=== PATIENT | male | born 1980 | race Caucasian/White ===

== ENCOUNTER 2017-08-11 18:48 | Emergency (ER) | payer BC ==
[2017-08-11 18:56] VITALS: BMI 29.8
[2017-08-11 18:59] VITALS: BP 131/86; PULSE 68; TEMP 98.4
--- NOTE | 2017-08-11 19:24 | PDOC ---
History of Present Illness - General History Source: Patient, Spouse Exam Limitations: Language Barrier - History of Present Illness Initial Comments: 08/11/17 19:46 The patient is a 37 year old male, with no significant past medical history, who presents to the emergency department s/p witnessed syncopal episode at approximately 18:00. As per partner, patient had one of his teeth removed at approximately 12:00 pm today. Patient reports he was feeling fine. However, patient reports at around 18:00, patient got up from his chair, took a couple of steps, syncopized, and hit his head on the door. Patient reports he does not recall getting up from the chair. As per , her mother reported the patient was down for several seconds, but was able to get up and ambulate on his own after the incident. Patient reports associated abrasion to the forehead with mild pain, upper lip laceration and pain, toothache, and bilateral knee pain. Patient reports taking Ibuprofen for the pain prior to presentation, with mild relief. He denies any headache, changes in vision, dizziness, lightheadedness, unsteady gait, weakness, neck or back pain. He denies any nausea or vomiting. He denies any fever or chills. He denies any chest pain, shortness of breath, diaphoresis, or palpitations. Patient reports he has had multiple syncopal episodes in the past, usually triggered by stressors. Patient's Tetanus shot is up to date. Allergies: NKDA Past Surgical History: Tooth extraction Social History: Social ETOH use. Non smoker. No recreational drug use. <Elke Machuca - Last Filed: 08/11/17 20:28> <Lucina Hyde - Last Filed: 08/14/17 01:31> - General Chief Complaint: Syncope/Near Syncope Stated Complaint: PASSED OUT Time Seen by Provider: 08/11/17 19:19 Past History <Elke Machuca - Last Filed: 08/11/17 20:28> - Past Medical History COPD: No - Suicide/Smoking/Psychosocial Hx Smoking History: Never smoked Hx Alcohol Use: Yes Drug/Substance Use Hx: No Substance Use Type: Alcohol <Lucina Hyde - Last Filed: 08/14/17 01:31> - Past Medical History Allergies/Adverse Reactions: Allergies Allergy/AdvReac Type Severity Reaction Status Date / Time No Known Allergies Allergy Verified 08/11/17 18:49 Home Medications: Ambulatory Orders Amoxicillin - [Amoxicillin 500mg Capsule -] 500 mg PO TID 08/11/17 Ibuprofen [Motrin -] 600 mg PO TID 08/11/17 Review of Systems - Review of Systems Able to Perform ROS?: Yes Comments:: 08/11/17 19:46 CONSTITUTIONAL: Absent: fever, no chills, no fatigue EYES: Absent: visual changes ENT: Present: Toothache, upper lip pain Absent: ear pain, no sore throat CARDIOVASCULAR: Absent: chest pain, no palpitations RESPIRATORY: Absent: cough, no SOB GI: Absent: abdominal pain, no nausea, no vomiting, no constipation, no diarrhea GENITOURINARY: Absent: dysuria, no frequency, no hematuria MUSKULOSKELETAL: Present: bilateral knee pain Absent: back pain, no myalgia, neck pain SKIN: Present: laceration to the upper lip, abrasion to forehead(with pain) Absent: rash NEURO: Present: syncope Absent: dizziness, lightheadedness, headache. <Elke Machuca - Last Filed: 08/11/17 20:28> *Physical Exam - Vital Signs Last Vital Signs Temp Pulse Resp BP Pulse Ox 98.4 F 68 18 131/86 100 08/11/17 18:49 08/11/17 18:49 08/11/17 18:49 08/11/17 18:49 08/11/17 18:49 - Physical Exam Comments: 08/11/17 19:49 GENERAL: The patient is awake, alert, and fully oriented, in no acute distress. HEAD: 1 cm superficial abrasion to the right side of forehead, not actively bleeding. 2 cm partial thickness, vertical laceration at the right side of the upper lip; not through and through; not actively bleeding. EYES: Pupils equal, round and reactive to light, extraocular movements intact, sclera anicteric, conjunctiva clear with no pallor. ENT: Ears normal, nares patent, oropharynx clear without exudates. Moist mucous membranes. NECK: Normal range of motion, supple without lymphadenopathy, JVD, or masses. LUNGS: Breath sounds equal, clear to auscultation bilaterally. No wheeze/ crackles. HEART: Regular rate and rhythm, normal S1 and S2 without murmur or rub. ABDOMEN: Soft/nontender/nondistended. BS wnl. No guarding or rebound. No palpable masses. No hepatosplenomegaly. BACK: No midline tenderness. No cervical spine tenderness. EXTREMITIES: Normal range of motion, no edema. No clubbing or cyanosis. No cords, erythema, or tenderness. NEUROLOGICAL: Cranial nerves II through XII grossly intact. Normal speech, normal gait. PSYCH: Normal mood, normal affect. SKIN: Laceration to right upper lip(see Head exam). Warm, Dry, normal turgor, no rashes noted. <Elke Machuca - Last Filed: 08/11/17 20:28> - Vital Signs Last Vital Signs Temp Pulse Resp BP Pulse Ox 98.4 F 68 18 131/86 100 08/11/17 18:49 08/11/17 18:49 08/11/17 18:49 08/11/17 18:49 08/11/17 18:49 <Lucina Hyde - Last Filed: 08/14/17 01:31> Procedures - Laceration/Wound Repair Upper Lip Wound Length: to 2.5 cm Wound Explored: clean Wound's Depth, Shape: linear Irrigated w/ Saline: Yes Betadine Prep: No (Hibiclens/ethanol) Anesthesia: 1% Lidocaine Amount of Anesthetic (ccs): 2 Wound Repaired With: Sutures Suture Size/Type: 5:0 Number of Sutures: 2 Layer Closure: No Progress: wound cleansed with Hibiclens/ethanol and sterilely draped. 2 mL of 1% lidocaine infiltrated into the wound for local anesthesia. Wound irrigated with 20 mL of sterile normal saline. No evidence of debris or foreign body in wound. Wound edges approximated and wound closed with 2 interrupted sutures of 5-0 nylon. Bacitracin applied to wound. Patient tolerated procedure well <Lucina Hyde - Last Filed: 08/14/17 01:31> Medical Decision Making - Medical Decision Making Documentation has been prepared under my direction and personally reviewed by me in its entirety. I attest that this documented accurately reflects all work, treatment, procedures and medical decision making performed by me. As noted above, this otherwise healthy 37-year-old man, with a history of previous vasovagal episodes presents with syncopal episode after dental work earlier today. Patient is currently asymptomatic. Exam as noted, without evidence of acute abnormality except for laceration of the upper lip. Because the patient has a previous history of multiple vasovagal episodes which occur when he is "stressed", and he has no symptoms/signs of acute cardiovascular or neurologic abnormalities, etiology of loss of consciousness is likely secondary to vasovagal reflex Laceration of upper lip repaired as noted in procedure note. Patient should keep his head elevated tonight. He should return to the emergency room if he has headache/nausea/vomiting/ lightheadedness that is persistent. Sutures should be removed on August 16 <Lucina Hyde - Last Filed: 08/14/17 01:31> *DC/Admit/Observation/Transfer - Attestations Scribe Attestion: 08/11/17 19:46 Documentation prepared by Elke Machuca, acting as pediatric medical assistant for Lucina Hyde MD. <Elke Machuca - Last Filed: 08/11/17 20:28> <Lucina Hyde - Last Filed: 08/14/17 01:31> Diagnosis at time of Disposition: Vasovagal syncope Lip laceration Qualifiers: Encounter type: initial encounter Qualified Code(s): S01.511A - Laceration without foreign body of lip, initial encounter - Discharge Dispostion Disposition: HOME Condition at time of disposition: Stable - Patient Instructions Printed Discharge Instructions: How to Care for a Laceration After Repair, DI for Syncope in Adults (Fainting) Additional Instructions: Rest; drink plenty of fluids Tylenol as needed for headache/pain for the next 24 hours; then Tylenol/Motrin/ Aleve as needed elevate head tonight ; avoid strenuous activity for the next 24 hours Keep wound as dry as possible for 48 hours; apply bacitracin daily Continue amoxicillin as previously prescribed Return to ER if severe headache, nausea/vomiting, severe lightheadedness occurs Have sutures removed on Wednesday, Aug 16 - Post Discharge Activity Forms/Work/School Notes: Back to Work
== END 2017-08-11 20:39 | disposition home or self-care (01) ==
LOC: FER 18:48
DX: R55 Syncope and collapse (principal); S01.511A Laceration without foreign body of lip, initial encounter
CPT/HCPCS: 99282-25

== ENCOUNTER 2021-03-26 15:42 | Emergency (ER) | payer BC ==
[2021-03-26 15:52] VITALS: BP 139/81; PULSE 61; TEMP 98.2; BMI 29.8
[2021-03-26] MEDS ORDERED: KETOROLAC TROMETHAMINE 30 MG/1 ML VIAL IM ONE (18:16)
[2021-03-26] MEDS ORDERED: diazePAM 5 MG TABLET PO ONE (18:16)
[2021-03-26] MEDS ORDERED: KETOROLAC TROMETHAMINE 30 MG/1 ML VIAL ONE (18:32)
[2021-03-26] MEDS ORDERED: diazePAM 5 MG TABLET ONE (18:32)
== END 2021-03-26 19:56 | disposition home or self-care (01) ==
LOC: JER 15:42
PROC: 3E0233Z Introduction of Anti-inflammatory into Muscle, Percutaneous Approach (ICD-10-PCS; principal; 2021-03-26)
DX: M54.16 Radiculopathy, lumbar region (principal)
CPT/HCPCS: 99284-25